=== PATIENT | male | born 1950 | race Caucasian/White ===

== ENCOUNTER 2017-05-19 22:12 | Inpatient (IN) | payer MEDICARE ==
[2017-05-19 23:15] LABS: Hematocrit 46.5 % (42.0-52.0); Mean Platelet Volume 7.7 fL (7.4-10.4); Red Blood Cell (RBC) Count 4.12 mill/uL (4.70-6.10); White Blood Cell (WBC) Count 6.7 thou/uL (4.8-10.8)
--- NOTE | 2017-05-19 23:24 | RAD ---
EXAM: ONE VIEW CHEST 05/19/17 COMPARISON: 11/04/16 HISTORY: Chest pain and tachycardia. FINDINGS: Stable left sided single lead transvenous pacemaker. There is atherosclerosis of the aorta. Normal c ardiac silhouette. Pulmonary vessels are within normal limits. Minimal blunting of the left costophr enic angle. Right costophrenic angle is clear. Patchy interstitial opacities in the left and to a le sser extent right lung base. No pneumothorax or osseous abnormalities. IMPRESSION: Pleural and parenchymal changes left lung base. Additional patchy interstitial opacity in the right lung base. Correlate for edema, infiltrate. POS: [facility]
[2017-05-19 23:27] LABS: #Basophils 0.1 thou/uL (0.0-0.2); #Eosinphils 0.2 thou/uL (0.0-0.7); #Lymphocytes 2.1 thou/uL (1.20-3.40); #Monocytes 0.9 thou/uL (0.11-0.59); #Neutrophils 3.5 thou/uL (1.40-6.50); %Basophils 0.8 % (0.0-1.0); %Eosinophils 2.7 % (0.0-10.0); %Lymphocytes 30.8 % (21.0-51.0); %Monocytes 13.8 % (0.0-10.0); Macrocytosis SLIGHT = 6-15 cells (100X) (0-5/hpf)
[2017-05-19 23:39] LABS: Troponin I 0.015 ng/mL (< 0.028)
[2017-05-19 23:41] LABS: ALT (SGPT) 10 U/L (8-55); AST (SGOT) 14 U/L (5-34); Alkaline Phosphatase 94 U/L (40-150); Anion Gap 14 mmol/L (10-20); BUN (Urea Nitrogen) 12 mg/dL (8.4-25.7); Bilirubin, Total 0.4 mg/dL (0.2-1.2); Calc. Creatinine Clearance 0 mL/min (70-130); Calcium 8.9 mg/dL (7.8-10.44); Carbon Dioxide 23 mmol/L (23-31); Chloride 107 mmol/L (98-107); Estimated GFR-MDRD 82; Globulin 3.8 g/dL (2.4-3.5); Protein, Total 7.7 g/dL (5.8-8.1)
--- NOTE | 2017-05-19 23:57 | PDOC.EVN ---
Event Note - Event Note Event Note: [id number] h&p dictated 1. Chest pain 2. h/o htn 3. h/o afib 4. h/o hpl plan: see orders
[2017-05-20 01:43] VITALS: BMI 27.5
[2017-05-20 06:01] LABS: Troponin I Less than 0.010 ng/mL (< 0.028)
[2017-05-20] MEDS: Nitroglycerin 2% Ointment 1 INCH/1 GM Packet TOP SCH ×3 (06:22→20:41)
--- NOTE | 2017-05-20 07:07 | HP ---
DATE OF ADMISSION: 05/19/2017 CHIEF COMPLAINT: Chest pain. HISTORY OF PRESENT ILLNESS: Patient is a 67 years old male with past medical history of hypertensio n, atrial fibrillation, hyperlipidemia, CHF, now came to the ER complaining of arrhythmia and chest pain. Chest pain has started like 3 days back, intermittent, sharp kind of pain. No aggravating fa ctors, no relieving factors, substernal. Denies any radiation. Symptoms of pain persisted today, s o he came to the ER. Initially, it was moderate in intensity. Currently, mild. Denies any fever, denies any chills. Complaints of some dizziness and some nausea also with pain. Denies any fever, denies any chills, denies any cough, denies any sputum production. PAST MEDICAL HISTORY: As per HPI. PAST SURGICAL HISTORY: Pacemaker. SOCIAL HISTORY: Denies smoking. Occasional alcohol. Denies any drugs. MEDICATIONS: Reviewed. FAMILY HISTORY: Positive for heart problems. REVIEW OF SYSTEMS: Constitutional: Denies any fever, denies any chills. Eyes: Denies vision prob lems. Ears: Denies any hearing loss. Neck: Denies neck pain. Cardiovascular system: Positive f or chest pain. Respiratory system: Denies chest pain. Denies cough. Musculoskeletal: Positive f or bilateral leg swelling. Integumentary: Dry skin. Cranial nerve system: Denies syncope, denies lightheadedness. Psychiatric: Denies anxiety. All other review of systems are reviewed and are negative. PHYSICAL EXAMINATION: CONSTITUTIONAL/VITAL SIGNS: At the time of H and P performed, blood pressure is 130/70, afebrile, p ulse rate 85, respiratory rate 18, pulse ox 97% on room air. GENERAL: The patient appears comfortable. HEENT: Pupils equal, round, and reactive. Anterior naris patent. Teeth intact. Tongue is moist. NECK: Supple, no JVD. CARDIOVASCULAR SYSTEM: S1, S2 present. Regular rate and rhythm. No murmurs, no rubs, no gallops. RESPIRATORY SYSTEM: No wheezing, no rhonchi. Breath sounds bilaterally. GASTROINTESTINAL: Abdomen is soft, nontender, no guarding, no organomegaly, no masses felt. MUSCULOSKELETAL: No edema. INTEGUMENTARY: No rashes seen. PSYCHIATRIC: Mood appropriate at this time. CRANIAL NERVE SYSTEM: Awake, follows commands. Strength intact, sensory intact. LABORATORY DATA: At the time of H and P performed, sodium 139, potassium 4.5, chloride 107, CO2 23, BUN of 12, creatinine 0.92, glucose 98, CK-MB 0.8. White count 6.7, hemoglobin 15.1, platelet coun t 247. EKG: Positive for EKG. No acute ST changes. Positive for aflutter/AFib. ASSESSMENT AND PLAN: The patient is a 67 years old male: 1. Chest pain, need to rule out cardiac etiology. Plan to check cardiac enzymes. Plan to monitor the patient closely. Plan to consult Cardiology to evaluate the patient. 2. History of hypertension. Monitor blood pressures, continue home blood pressure medications. 3. History of atrial fibrillation. Continue home medications. We will place patient on telemetry. 4. History of hyperlipidemia. Continue statins. The case was discussed in detail with the patient.
[2017-05-20 08:34] LABS: Troponin I Less than 0.010 ng/mL (< 0.028)
[2017-05-20] MEDS ORDERED: Sotalol HCl 80 MG TAB PO SCH ×2 (09:00→10:00)
[2017-05-20] MEDS ORDERED: Clopidogrel Bisulfate 75 MG TAB PO SCH (09:00)
--- NOTE | 2017-05-20 10:51 | PDOC.PN ---
- Subjective Encounter Start Date: 05/20/17 Encounter Start Time: 08:40 -: old records requested/rev Pt seen and examined earlier on rounds, chart reviewed in its entirety. admitted for 3 days of sharp chest pain, biomarkers and EKG negative. cardiology consulted, Dr arias nonfarm animal caretaker, and this is the patient's private investigator surveillance. Will follow up on recommendations Vitals have been god, CP resolved, tele negative. No F/C, no cough or sputum production, no N/V/D/C. BLE edema worse than normal, but pt off of lasix for a few days prior to admit 10 point ROS performed and neg for all except as above - Objective Resuscitation Status: Full MAR Reviewed: Yes Vital Signs & Weight: Vital Signs (12 hours) Temp Pulse Resp BP BP Pulse Ox 05/20/17 10:23 101 H 05/20/17 08:39 101 H 05/20/17 08:05 98.1 F 101 H 18 05/20/17 07:32 98.3 F 101 H 18 115/79 92 L 05/20/17 01:10 97.6 F 99 18 05/20/17 01:01 97.6 F 99 18 122/72 94 L 05/19/17 23:57 97 Weight Weight 214 lb 8 oz I&O: 05/19/17 05/20/17 05/21/17 06:59 06:59 06:59 Intake Total 720 Balance 720 Result Diagrams: 05/19/17 23:07 05/19/17 23:07 Radiology Reviewed by me: Yes EKG Reviewed by me: Yes Phys Exam - Physical Examination Constitutional: NAD HEENT: PERRLA, moist MMs, sclera anicteric, oral pharynx no lesions Neck: no nodes, no JVD, supple, full ROM Respiratory: no wheezing, no rales, no rhonchi, clear to auscultation bilateral Cardiovascular: RRR, no significant murmur, no rub, irregular Gastrointestinal: soft, non-tender, no distention, positive bowel sounds Musculoskeletal: pulses present, edema present Neurological: non-focal, normal sensation, moves all 4 limbs Lymphatic: no nodes Psychiatric: normal affect, A&O x 3 Skin: no rash, normal turgor, cap refill <2 seconds Dx/Plan (1) Chest pain Code(s): R07.9 - CHEST PAIN, UNSPECIFIED Status: Acute Qualifiers: Chest pain type: precordial pain Qualified Code(s): R07.2 - Precordial pain (2) CAD (coronary artery disease) Code(s): I25.10 - ATHSCL HEART DISEASE OF [place] CORONARY ARTERY W/O ANG PCTRS Status: Chronic Qualifiers: Coronary Disease-Associated Artery/Lesion type: [place] artery [place] vs. transplanted heart: [place] heart Associated angina: without angina Qualified Code(s): I25.10 - Atherosclerotic heart disease of [place] coronary artery without angina pectoris (3) CKD (chronic kidney disease) stage 2, GFR 60-89 ml/min Code(s): N18.2 - CHRONIC KIDNEY DISEASE, STAGE 2 (MILD) Status: Chronic (4) Chronic a-fib Code(s): I48.2 - CHRONIC ATRIAL FIBRILLATION Status: Chronic (5) Dyslipidemia Code(s): E78.5 - HYPERLIPIDEMIA, UNSPECIFIED Status: Chronic (6) HTN (hypertension) Code(s): I10 - ESSENTIAL (PRIMARY) HYPERTENSION Status: Chronic Qualifiers: Hypertension type: essential hypertension Qualified Code(s): I10 - Essential (primary) hypertension (7) History of permanent cardiac pacemaker placement Code(s): Z95.0 - PRESENCE OF CARDIAC PACEMAKER Status: Chronic - Plan cont current plan of care * . follow up on cardiology recommendations. NPO at present. may be able to D/C later with outpatient followup
[2017-05-20] MEDS: Simvastatin 20 MG TAB PO SCH (15:40)
[2017-05-20] MEDS: Rivaroxaban 10 MG TAB PO SCH (17:14)
--- NOTE | 2017-05-20 19:45 | CON ---
DATE OF CONSULTATION: 05/20/2017 CARDIOLOGY CONSULTATION REFERRING PHYSICIAN: Maikol Briones M.D. REASON FOR CONSULTATION: Chest pain with documented recurrent atrial flutter. HISTORY OF PRESENT ILLNESS: Mr. Mart is a well known 67-year-old gentleman with history of permanent pacemaker implantation due to sick sinus syndrome. He is a patient of mine in the outp atient setting and presents with recurrent flutters over the past 2 to 3 days and chest pain associa vale with increased heart rates, but his heart rate settled down and his chest pain resolved. His pa in is sharp and intermittent and not typical of angina. He does, however, say that his pain is asso ciated with feeling of fluttering and palpitations in the chest and does resolve with resolution of these palpitations. He denies any associated symptoms or radiation of his pain pattern. On admission, he was found to have underlying atrial flutter with rates that are variable from 80s-9 0s to 110s-120s. PAST MEDICAL HISTORY: 1. Sick sinus syndrome. 2. Paroxysmal atrial fibrillation/flutter. 3. Hyperlipidemia. 4. Diastolic congestive heart failure. PAST SURGICAL HISTORY: Permanent pacemaker implant. ALLERGIES: No known drug allergies. SOCIAL HISTORY: He denies tobacco use, ethanol abuse, illicit or recreational drug use. FAMILY HISTORY: Negative with respect to premature atherosclerosis. CURRENT MEDICATIONS AT HOME: Include: 1. Aspirin 81 mg daily. 2. Plavix 75 mg daily. 3. Breo 1 inhalation daily. 4. Furosemide 40 mg daily. 5. Lovastatin 20 mg daily. 6. Sotalol 120 mg b.i.d. REVIEW OF SYSTEMS: As per history of present illness. Remainder of 12 system review is negative. PHYSICAL EXAMINATION: VITAL SIGNS: Blood pressure 115/79, pulse 101 and irregularly irregular, respiratory rate 18 and no nlabored, temperature 98.3, oxygen saturation is 94% on 2 liters per minute nasal cannula. GENERAL: This is a well-developed, well-nourished 67-year-old gentleman in no acute distr ess. He is alert and oriented x4, answers questions appropriately. HEENT: Head was atraumatic, normocephalic. Pupils are equal, round and reactive. Sclerae and conj unctivae are clear. There are no oral lesions. NECK: Supple, no JVD, thyromegaly, carotid bruits. CHEST: Symmetrical inspiration and expiration. HEART: Irregularly irregular with a soft 1/6 systolic murmur at the apex . PMI is nondisplace d. Not enlarged. LUNGS: Clear to auscultation in all alvarado. No adventitious sounds appreciated. ABDOMEN: Soft, nontender, nondistended, without mass or organomegaly. Bowel sounds are present in all 4 quadrants. No flank bruits auscultated. EXTREMITIES: 2+ pulses noted bilaterally. Lower extremity strength 5/5 bilaterally. No clubbing, cyanosis or edema. NEUROLOGIC: Grossly intact. No focal motor deficits appreciated. DATABASE: EKG reveals atrial flutter with variable conduction. There are nonspecific ST changes. LABORATORY DATA: CBC reveals white count of 6, hemoglobin and hematocrit of 15 and 46, platelet cou nt 247,000. Differential white blood cells normal. Red cell indices normocytic. Chemistries revea l normal electrolytes, BUN and creatinine of 12 and 0.9, GFR is estimated at 82. LFTs are within no rmal limits. Serial cardiac enzymes are normal. BNP 288. ASSESSMENT: 1. Paroxysmal atrial flutter/fibrillation, recurrent. 2. Diastolic congestive heart failure, chronic. 3. Atypical chest pain, noncardiac. 4. Sick sinus syndrome with history of permanent pacemaker implant, normal function. 5. Hypertension, controlled. 6. Dyslipidemia, on therapy. RECOMMENDATIONS: From a cardiac standpoint, he is stable. We have increased his sotalol to 240 mg b.i.d. We will monitor his QT interval over the next 24 hours. We will monitor him in the outpatie nt setting after discharge tomorrow and consider EP consultation for atrial flutter ablation if he i s not able to be controlled on intermediate dose of his sotalol. We will discontinue his Plavix and change him to a more appropriate anticoagulant such as Xarelto for stroke risk reduction. I apprec iate the opportunity to participate.
[2017-05-20] MEDS: Sotalol HCl 80 MG TAB PO SCH (20:40)
[2017-05-21] MEDS: Nitroglycerin 2% Ointment 1 INCH/1 GM Packet TOP SCH ×3 (03:06→20:18)
[2017-05-21] MEDS: Sotalol HCl 80 MG TAB PO SCH ×2 (09:40→20:18)
--- NOTE | 2017-05-21 11:10 | PDOC.PN ---
- Subjective Encounter Start Date: 05/21/17 Encounter Start Time: 09:45 states he has been having palpitations that has caused him to have some SOB with it. HR has jumped up into 120's with continous pulse meter he has on - Objective Vital Signs & Weight: Vital Signs (12 hours) Temp Pulse Resp BP BP Pulse Ox 05/21/17 09:40 106 H 106/75 05/21/17 08:30 98 F 106 H 24 H 106/75 95 05/21/17 08:00 98 F 106 H 24 H 05/21/17 03:57 95 05/21/17 03:00 98.1 F 72 16 103/58 L Weight Weight 214 lb 8 oz I&O: 05/20/17 05/21/17 05/22/17 06:59 06:59 06:59 Intake Total 720 1460 Output Total 1000 Balance 720 460 Result Diagrams: 05/19/17 23:07 05/19/17 23:07 Phys Exam - Physical Examination Constitutional: NAD HEENT: PERRLA, moist MMs Neck: no nodes, no JVD Respiratory: no wheezing Cardiovascular: no significant murmur [id number] at bedside Gastrointestinal: soft, non-tender Musculoskeletal: pulses present Neurological: non-focal Psychiatric: normal affect, A&O x 3 Dx/Plan (1) Atrial fibrillation and flutter Code(s): I48.91 - UNSPECIFIED ATRIAL FIBRILLATION; I48.92 - UNSPECIFIED ATRIAL FLUTTER Status: Acute (2) COPD (chronic obstructive pulmonary disease) Status: Chronic - Plan cont current plan of care, respiratory therapy * . was planning on Discharging home but HR not controlled repeat EKG done now. will follow with recs from cardiology start duonebs continue other meds at this time
[2017-05-21] MEDS: Simvastatin 20 MG TAB PO SCH (16:31)
[2017-05-21] MEDS: Rivaroxaban 10 MG TAB PO SCH (19:18)
[2017-05-22] MEDS ORDERED: Lorazepam 1 MG TAB PO SCH (01:30)
[2017-05-22] MEDS: Nitroglycerin 2% Ointment 1 INCH/1 GM Packet TOP SCH ×2 (06:30→13:38)
[2017-05-22] MEDS ORDERED: Diprivan 0 ML ONE (08:54)
[2017-05-22] MEDS ORDERED: Furosemide 40 MG TAB PO SCH (09:00)
[2017-05-22] MEDS: Sotalol HCl 80 MG TAB PO SCH (10:22)
--- NOTE | 2017-05-22 10:42 | PDOC.CTH ---
Cardiology Progress Note - Subjective Converted to sinus last night. Now sinus with intermittent paced rhythm. Did not have to perform TAMARA/CV this morning. ROS otherwise negative. - Objective Vital Signs Temp Pulse Resp BP BP Pulse Ox 05/22/17 10:22 67 144/93 H 05/22/17 07:41 97.9 F 67 22 H 05/22/17 07:30 98.4 F 71 16 140/80 95 05/22/17 04:14 97.9 F 67 22 H 129/61 92 L 05/22/17 00:06 80 24 H 111/55 L 96 05/21/17 23:02 69 18 93 L - Physical Examination General/Neuro: alert & oriented x3, NAD Neck: carotid US brisk, no JVD present Lungs: CTA, unlabored respirations Heart: PMI normal, RRR Abdomen: no HSM, NT/ND, soft Extremities: other: (2+ pulses, no edema) Other PE findings: Neuro: no focal motor defs - Telemetry Telemetry Rhythm: sinus rhythm/Vpaced - Labs Result Diagrams: 05/19/17 23:07 05/19/17 23:07 Troponin/CKMB CK-MB (CK-2) 0.8 ng/mL (0-6.6) 05/19/17 23:07 Troponin I Less than 0.010 ng/mL (< 0.028) 05/20/17 08:03 - Assessment/Plan 1. PAF/flutter: sinus with increased sotalol dose. QTc acceptable. Continue current dosing and Xarelto. Plavix discontinued. 2. HTN: controlled. Continue current meds. 3. SSS, s/p PPM: normal function.
--- NOTE | 2017-05-22 11:52 | DIS ---
DATE OF ADMISSION: 05/19/2017 DATE OF DISCHARGE: 05/22/2017 PRIMARY CARE PHYSICIAN: Tyree Templeton M.D. PRIMARY JAILER/TRAINING OFFICER: Dr. Oleg Treviño. CONDITION AT THE TIME OF DISCHARGE: Stable and improved. DISCHARGE DIAGNOSES: 1. Atrial flutter with rapid ventricular rate, now converted to normal sinus rhythm. 2. History of sick sinus syndrome, status post pacemaker placement in the past. 3. Hypertension. 4. Chronic obstructive pulmonary disease. DISCHARGE MEDICATIONS: The patient is instructed to stop his Plavix. New medication includes Xarel to 20 mg daily, and sotalol dose increased to 240 mg p.o. b.i.d. Resume aspirin 81 mg daily, lovast atin 20 mg daily, Lasix 40 mg daily, and Breo Ellipta daily. CONSULTATIONS INHOUSE: Include Cardiology, Dr. Oleg Treviño. PROCEDURES: Include chest x-ray. ADMISSION HISTORY: Mr. Aj Mart is a very pleasant 67-year-old male with past medical history of sick sinus syndrome, status post pacemaker placement as well as history of dyslipidemia, hypertensio n, and atrial fibrillation who presented to the ER with complaints of chest discomfort as well as pa lpitations. He was hemodynamically stable at the time of presentation and his blood work was essent ially unremarkable. EKG showed atrial flutter/fibrillation and he was admitted for further evaluati on. Cardiology was consulted. Please see admission history and physical for further details. HOSPITAL COURSE: The patient was seen by Cardiology and his sotalol was increased by Dr. Treviño. Con sideration was to get a TAMARA with cardioversion, but the patient converted back to sinus rhythm on so talol alone. He was started on Xarelto for stroke prophylaxis and his Plavix was discontinued at th is time. On the day of discharge, he is back to his baseline in sinus rhythm and has been feeling well withou t any overt symptoms. Care was discussed with the patient and his makeup instructor, Dr. Treviño, who has c leared him for discharge today with outpatient followup. Prescriptions for sotalol were provided an d samples for Xarelto were provided by Dr. Treviño. The patient was seen and examined prior to discharge. PHYSICAL EXAMINATION: VITAL SIGNS: Temperature 97.9, pulse is 67, respirations 16 to 22, saturating 95% on room air, bloo d pressure 140/80. GENERAL: No acute distress, awake, alert, oriented x3. CHEST: Clear to auscultation without any wheezing, rales, or rhonchi. Rate and rhythm is regular w ithout any murmur, rubs, or gallops. ABDOMEN: Soft, nontender, nondistended, positive bowel sounds. EXTREMITIES: Free of any cyanosis, clubbing, or edema. REVIEW OF SYSTEM: He is denying any chest pain, palpitation, or shortness of breath. LABORATORY DATA: CBC is unremarkable. Serum chemistries are unremarkable. BNP 288. Cardiac enzym es negative x3. At this time, the patient is hemodynamically stable and will be discharged home with outpatient foll owup with his makeup instructor and primary care physician. All the questions were answered.
[2017-05-22 16:01] VITALS: BP 134/97; TEMP 98.7
[2017-05-22] MEDS: Simvastatin 20 MG TAB PO SCH (16:50)
--- NOTE | 2017-05-24 06:35 | EKG ---
Test Reason : POST CARDIOVERSION Blood Pressure : / mmHG Vent. Rate : 064 BPM Atrial Rate : 064 BPM P-R Int : 202 ms QRS Dur : 078 ms QT Int : 484 ms P-R-T Axes : 088 033 -47 degrees QTc Int : 499 ms Demand pacemaker; interpretation is based on intrinsic rhythm Sinus rhythm with ventricular-paced complexes Low voltage QRS Prolonged QT Abnormal ECG When compared with ECG of 21-MAY-2017 08:18, (Unconfirmed) Electronic demand pacing is now Present Vent. rate has decreased BY 42 BPM Confirmed by ALEXSANDER TONY ([id number]) on 05/24/2017 6:34:48 AM Referred By: KENNEDY Confirmed By:ALEXSANDER TONY
--- NOTE | 2017-05-24 06:51 | EKG ---
Test Reason : Blood Pressure : / mmHG Vent. Rate : 106 BPM Atrial Rate : 106 BPM P-R Int : 128 ms QRS Dur : 082 ms QT Int : 382 ms P-R-T Axes : 000 017 -79 degrees QTc Int : 507 ms Sinus tachycardia Low voltage QRS Abnormal ECG When compared with ECG of 20-MAY-2017 01:42, (Unconfirmed) Criteria for Septal infarct are no longer Present Confirmed by ALEXSANDER TONY ([id number]) on 05/24/2017 6:50:47 AM Referred By: KENNEDY Confirmed By:ALEXSANDER TONY
--- NOTE | 2017-05-26 13:18 | EKG ---
Test Reason : Blood Pressure : / mmHG Vent. Rate : 084 BPM Atrial Rate : 084 BPM P-R Int : 134 ms QRS Dur : 072 ms QT Int : 422 ms P-R-T Axes : 000 -36 -65 degrees QTc Int : 498 ms Poor data quality, interpretation may be adversely affected Sinus rhythm with marked sinus arrhythmia with frequent ventricular-paced complexes Left axis deviation Pulmonary disease pattern Prolonged QT Abnormal ECG Confirmed by ANNA CAMPBELL D.O. ([id number]), news video editor KRISTOPHER ROLON ([id number]) on 05/26/2017 1:18:34 PM Referred By: Confirmed By:ANNA CAMPBELL D.O.
--- NOTE | 2017-05-26 13:19 | EKG ---
Test Reason : CHEST PAIN Blood Pressure : / mmHG Vent. Rate : 099 BPM Atrial Rate : 099 BPM P-R Int : 180 ms QRS Dur : 078 ms QT Int : 346 ms P-R-T Axes : 000 033 -75 degrees QTc Int : 444 ms Normal sinus rhythm Septal infarct , age undetermined Abnormal ECG Confirmed by ANNA CAMPBELL D.O. ([id number]), film editor KRISTOPHER ROLON ([id number]) on 05/26/2017 1:18:36 PM Referred By: SUMMER CAMPBELL Confirmed By:ANNA CAMPBELL D.O.
== END 2017-05-22 17:07 | disposition home or self-care (01) | DRG 309 ==
LOC: ERS 22:12 → 2SW 23:50 → OBSVTOIN 05-21 17:03
PROVIDERS: ADMIT Internal Medicine; ATTEND Internal Medicine
DX: I48.0 Paroxysmal atrial fibrillation (principal); I50.32 Chronic diastolic (congestive) heart failure; J44.9 Chronic obstructive pulmonary disease, unspecified; I13.0 Hypertensive heart and chronic kidney disease with heart failure and stage 1 through stage 4 chronic kidney disease, or unspecified chronic kidney disease; I48.92 Unspecified atrial flutter; Z53.09 Procedure and treatment not carried out because of other contraindication; Z95.0 Presence of cardiac pacemaker; Z79.02 Long term (current) use of antithrombotics/antiplatelets; E78.5 Hyperlipidemia, unspecified; N18.2 Chronic kidney disease, stage 2 (mild); I48.2 Chronic atrial fibrillation; I25.10 Atherosclerotic heart disease of native coronary artery without angina pectoris
CPT/HCPCS: 36415; 71010; 80053; 82553; 83880; 84484; 85025; 93005; 93010; 94640; 94760; J2704; J7620